=== PATIENT | female | born 1980 | race African-American/Black ===

== ENCOUNTER 2024-06-01 07:50 | Inpatient (IN) | payer BC ==
[2024-06-01 09:05] VITALS: BMI 36.0
[2024-06-01] MEDS: CITRIC ACID/SODIUM CITRATE 30 ML UNIT-DOSE CUP PO ONE (09:30)
[2024-06-01] MEDS: DEXTROSE 5%-LACTATED RINGERS 1,000 ML IV SCH (10:00)
[2024-06-01] MEDS ORDERED: ONDANSETRON 4 MG/2 ML VIAL IVPUSH PRN (10:05)
[2024-06-01 10:30] LABS: INR 0.83 (0.83-1.09); PROTHROMBIN TIME (PATIENT) 9.6 SEC (9.7-13.0)
[2024-06-01] MEDS ORDERED: SODIUM BICARBONATE 8.4% 50 MEQ/50 ML VIAL ONE (10:30)
[2024-06-01] MEDS ORDERED: FENTANYL CITRATE/PF 50 MCG/ML VIAL ONE (10:30)
[2024-06-01] MEDS ORDERED: LIDO 2%/EPI 1:200000 PRESRVFRE (20 ML SDVIAL) ONE (10:31)
[2024-06-01 10:32] LABS: ACTIVATED PTT 28.3 SECONDS (25.2-36.5)
[2024-06-01] MEDS ORDERED: ONDANSETRON 4 MG/2 ML VIAL ONE (10:35)
[2024-06-01] MEDS ORDERED: ceFAZolin SODIUM 1 GM VIAL ONE (10:35)
[2024-06-01] MEDS ORDERED: BUPIVACAINE 0.75% IN DEXTROSE/PF 2ML AMPULE NR ONE (11:29)
[2024-06-01] MEDS ORDERED: OXYTOCIN 10 UNITS/ML VIAL ONE ×2 (12:30→12:46)
[2024-06-01] MEDS: TRIAMCINOLONE ACET 40MG/1ML VIAL NR ONE (13:20)
[2024-06-01 13:56] LABS: CORD HCO3 22.9 mmHg (20-29); CORD PCO2 49.7 mmHg (30-78); CORD pH 7.282 (7.14-7.44)
[2024-06-01 13:57] LABS: CORD HCO3 21.6 mmHg (20-29); CORD PCO2 48.1 mmHg (30-78); CORD pH 7.271 (7.14-7.44)
[2024-06-01 14:00] LABS: CORD BASE EXCESS -2.6 mmol/L (0-2); CORD BASE EXCESS -3.8 mmol/L (0-2); CORD HCO3 22.8 mmHg (20-29); CORD HCO3 24.2 mmHg (20-29); CORD PCO2 46.8 mmHg (30-78); CORD PCO2 48.8 mmHg (30-78); CORD pH 7.305 (7.14-7.44); CORD pH 7.313 (7.14-7.44)
[2024-06-01] MEDS ORDERED: OXYTOCIN 20 UNITS in 0.9% NS 20 UNIT/1,000 ML INFUS.BAG IV ONE (16:52)
[2024-06-01] MEDS: OXYTOCIN 20 UNITS in 0.9% NS 20 UNIT/1,000 ML INFUS.BAG IV SCH (17:00)
[2024-06-01 17:37] LABS: INR 0.88 (0.83-1.09); PROTHROMBIN TIME (PATIENT) 10.2 SEC (9.7-13.0)
[2024-06-01] MEDS: ACETAMINOPHEN 1000 MG/100 ML BAG IVPB ONE (18:19)
[2024-06-02] MEDS: IBUPROFEN 600 MG TABLET (FP) PO PRN (05:33)
[2024-06-02 08:36] LABS: BASO % 0.1 % (0-2.0); HEMATOCRIT 25.1 % (32.4-45.2); HEMOGLOBIN 7.9 GM/dL (10.7-15.3); LYMPH % 7.7 % (8-40); MCH 23.9 pg (25.7-33.7); MCHC 31.6 g/dl (32.0-36.0); MEAN CELL VOLUME 75.4 fl (80-96); MEAN PLT VOLUME 11.3 fl (7.5-11.1); MONO % 6.9 % (3.8-10.2); NEUT % 85.3 % (42.8-82.8); PLATELET COUNT 96 10^3/uL (134-434); RBC 3.33 M/mm3 (3.60-5.2); WHITE BLOOD COUNT 12.6 K/mm3 (4.0-10.0)
[2024-06-02] MEDS: oxyCODONE HCL 5 MG TABLET PO PRN (23:39)
[2024-06-03] MEDS: DOCUSATE SODIUM 100 MG CAPSULE (FP) PO PRN (10:49)
[2024-06-03] MEDS: FERROUS SO4 325 MG TABLET (FP) PO SCH (10:49)
[2024-06-04] MEDS: HYDROCHLOROTHIAZIDE 25 MG TABLET (FP) PO SCH (01:43)
[2024-06-04] MEDS ORDERED: MAGNESIUM CITRATE 300 ML BOTTLE PO ONE (03:00)
[2024-06-04 03:43] LABS: BASO % 0.3 % (0-2.0); EOS % 0.8 % (0-4.5); HEMATOCRIT 17.7 % (32.4-45.2); MCH 24.7 pg (25.7-33.7); MCHC 32.9 g/dl (32.0-36.0); MEAN CELL VOLUME 75.1 fl (80-96); MEAN PLT VOLUME 10.1 fl (7.5-11.1); MONO % 7.2 % (3.8-10.2); NEUT % 78.7 % (42.8-82.8); PLATELET COUNT 97 10^3/uL (134-434); RBC 2.36 M/mm3 (3.60-5.2); RDW 16.3 % (11.6-15.6); WHITE BLOOD COUNT 9.4 K/mm3 (4.0-10.0)
[2024-06-04 03:44] LABS: HEMOGLOBIN 5.8 GM/dL (10.7-15.3)
[2024-06-04 04:01] LABS: ALBUMIN 2.3 g/dl (3.4-5.0)
[2024-06-04 04:10] LABS: BILIRUBIN,DIRECT 0.2 mg/dL (0.0-0.2); BILIRUBIN,TOTAL 0.4 mg/dL (0.2-1); TOT PROT 5.3 g/dl (6.4-8.2)
[2024-06-04 04:21] LABS: POTASSIUM 4.5 mmol/L (3.5-5.1)
[2024-06-04 04:23] LABS: BLOOD UREA NITROGEN 11.4 mg/dL (7-18); CALCIUM 8.3 mg/dL (8.5-10.1)
[2024-06-04 04:26] LABS: CREATININE 0.8 mg/dL (0.55-1.3)
[2024-06-04] MEDS: SIMETHICONE 80 MG TAB.CHEW (FP) PO ONE (04:57)
[2024-06-04] MEDS: SIMETHICONE 80 MG TAB.CHEW (FP) PO PRN (05:58)
[2024-06-04] MEDS: POLYETHYLENE GLYCOL (HEALTHYLAX) 3350 17 GM PACKET PO SCH (09:52)
[2024-06-04] MEDS: FUROSEMIDE 40 MG/4 ML INJECTABLE VIAL IVPUSH ONE (10:49)
[2024-06-04 11:29] VITALS: RESP 18
[2024-06-04 13:03] LABS: PH,URINE 6.5 (5.0-8.0); URINE APPEARANCE CLEAR; URINE BILIRUBIN NEGATIVE (NEGATIVE); URINE COLOR YELLOW; URINE GLUCOSE (UA) NEGATIVE (NEGATIVE); URINE KETONE NEGATIVE (NEGATIVE); URINE LEUK ESTERASE NEGATIVE (NEGATIVE); URINE NITRITE NEGATIVE (NEGATIVE); URINE PROTEIN NEGATIVE (NEGATIVE); URINE UROBILINOGEN 0.2 mg/dL (0.2-1.0)
[2024-06-04] MEDS: FUROSEMIDE 40 MG/4 ML INJECTABLE VIAL IVPUSH SCH (14:40)
[2024-06-04 15:54] LABS: HEMATOCRIT 24.3 % (32.4-45.2); HEMOGLOBIN 7.8 GM/dL (10.7-15.3); MCH 25.2 pg (25.7-33.7); MCHC 32.3 g/dl (32.0-36.0); MEAN CELL VOLUME 78.2 fl (80-96); MEAN PLT VOLUME 10.8 fl (7.5-11.1); PLATELET COUNT 145 10^3/uL (134-434); RDW 16.5 % (11.6-15.6); WHITE BLOOD COUNT 13.6 K/mm3 (4.0-10.0)
[2024-06-05] MEDS: MAGNESIUM HYDROX 2400MG/30ML ORAL SUSPENSION 30 ML CUP PO PRN (02:31)
[2024-06-05] MEDS: ACETAMINOPHEN 325 MG TABLET (FP) PO PRN (06:04)
[2024-06-05 09:58] VITALS: BP 136/80; PULSE 72; TEMP 98.6
[2024-06-05] MEDS ORDERED: IBUPROFEN 600 MG TABLET (FP) PO PRN (10:37)
[2024-06-05] MEDS: oxyCODONE HCL 5 MG TABLET PO PRN (10:56)
== END 2024-06-05 16:20 | disposition home or self-care (01) | DRG 786 ==
LOC: JLDR 07:50 → J3W 17:50
PROVIDERS: ADMIT Obstetrics & Gynecology Maternal & Fetal Medicine; ATTEND Obstetrics & Gynecology Maternal & Fetal Medicine
PROC: 10D00Z1 Extraction of Products of Conception, Low, Open Approach (ICD-10-PCS; principal; 2024-06-01)
DX: O30.043 Twin pregnancy, dichorionic/diamniotic, third trimester (principal); I50.31 Acute diastolic (congestive) heart failure; O99.12 Other diseases of the blood and blood-forming organs and certain disorders involving the immune mechanism complicating childbirth; D62 Acute posthemorrhagic anemia; O90.81 Anemia of the puerperium; O99.893 Other specified diseases and conditions complicating puerperium; D69.6 Thrombocytopenia, unspecified; O32.8XX0 Maternal care for other malpresentation of fetus, not applicable or unspecified; Z37.2 Twins, both liveborn; Z3A.37 37 weeks gestation of pregnancy
CPT/HCPCS: 36415; 36430; 36600; 71045-TC-FY; 74018-TC-FY; 80048; 80076; 81003; 82550; 82553; 82803; 83880; 84484; 85025; 85027; 85032; 85610; 85730; 86850; 86900; 86901; 86922; 87086; 88304-TC; 88307-TC; 93005; 93010; 93306-TC; 93970-TC; 94010; J0131; P9038; P9058